=== PATIENT | female | born 2000 | race Caucasian/White ===

== ENCOUNTER 2023-02-12 00:55 | Emergency (ER) | payer BC, SELFPAY ==
[2023-02-12 01:08] VITALS: BP 111/75; PULSE 77; RESP 16; TEMP 36.7; O2SAT 97; BMI 19.7
--- NOTE | 2023-02-12 01:18 | ED.NURSE ---
Patient changed into mental health scrubs. Belongings searched by security and secured in med room. Patient remains calm and cooperative with cares. Boyfriend remains at bedside. MD in to assess patient.
--- NOTE | 2023-02-12 01:22 | ED.NURSE ---
RN in to chaperaone patient.
--- NOTE | 2023-02-12 01:23 | ED.NURSE ---
Oyster Sorter chaperoned MD assessment.
--- NOTE | 2023-02-12 01:34 | ED.PSYCH ---
HPI - Psych General Date Seen: 02/12/23 Chief Complaint: Psychiatric Problem/Disorder Stated Complaint: Mental Health Time Seen by Provider: 02/12/23 00:57 Source: patient and other Mode of arrival: ambulatory Limitations: no limitations History of Present Illness HPI Narrative: 23-year-old female from [place] presents here with increasing suicidal ideation that she has had for the past few days, she says she has a plan to take her Adderall or her SSRI to overdose. She comes in [facility] with her boyfriend, and also because her friends have asked her to come here. She saw her new psychologist today, feels that she has escalating suicidal ideation much to the same point as 2 years ago when she was seen for an acetaminophen overdose. She was not hospitalized at that time, has never before been inpatient. Denies any use of alcohol or drugs, denies being , came here [facility] hoping that she could be sent somewhere for few days to get through this. complaint: suicidal ideation and feels depressed Onset (ago): day(s) Duration: constant History of same: Yes Relieving factors: none Exacerbating factors: none Context: significant life stressor Associated psychiatric symptoms: depression and suicidal ideation Associated symptoms: denies other symptoms Treatments prior to arrival: none If self harm: has plan Related Data Home Medications Medication Instructions Recorded Confirmed dextroamphetamine-amphetamine ER 1 cap PO PRN 02/12/23 02/12/23 20 mg 24hr capsule,extend release epinephrine 0.3 mg/0.3 mL 02/12/23 injection, auto-injector Allergies Allergy/AdvReac Type Severity Reaction Status Date / Time Cephalosporins AdvReac Severe Anaphylaxis Verified 02/12/23 01:00 Penicillins AdvReac Severe Anaphylaxis Verified 02/12/23 01:00 Review of Systems Status of ROS: Reports: 10 or more systems reviewed and unremarkable except as noted in History and below PFSH PFS Social History Smoking Status: Never smoker Do you use any of these nicotine containing products: None Second hand tobacco smoke exposure: No How often do you have a drink containing alcohol: 2-4 times a month AUDIT-C Alcohol total score: 2 Non-prescribed substance use: marijuana (any form) service: No Exam Narrative: Exam Narrative: Patient is seen in room 1, with nurse Hayde present, speaking to me normally nontoxic, no apparent distress, pupils equal round reactive to light, TMs are normal oropharynx is normal her neck is supple full range of motion. No meningismus, TMs are normal bilaterally, hydration status excellent, cranial nerves 3-12 are normal, chest is clear bilaterally no wheezing crackles noted heart sounds are normal, abdomen is soft scaphoid no organomegaly no tenderness to palpation bowel sounds are normal she moves all extremities independently and well, no tremors, able to walk and talk normally, no evidence of any cutting on the arms, no rashes. Const: Vital Signs, click to edit/add: Vital Signs - 24 hr 02/12/23 01:08 02/12/23 10:50 Temperature 98.0 F 97.9 F Pulse Rate [Pulse Oximeter] 77 80 Respiratory Rate 16 14 Blood Pressure [Le ft Upper Arm] 111/75 113/60 Pulse Oximetry 97 99 Oxygen Delivery Me thod Room Air Room Air Documenting provider has reviewed patient's vital signs: yes Course Course Hospital Course: Patient accepted for transfer, still on volunteer basis. No concerns prior to transfer. Reevaluation(s) Reevaluation #1: Labs are negative, she is medically cleared, for psychiatric evaluation, and possible admission /transfer. Very low possibilities is that her depression, and suicidal ideation is related to a medical issue. Time: 05:40 Reevaluation #2: I spoke to the mental health regional clinical research associate, she recommends inpatient voluntary admission, patient is agreeable to this, mental health regional clinical research associate also spoke to the family, we will try to find her bed, for proper forms are filled out, I will sign her over to the oncoming emergency room physician. She is stable for transfer, medically cleared. Time: 07:12 Vital Signs Vital signs: Initial Vital Signs Temperature 98.0 F 02/12/23 01:08 Temperature Source Temporal Artery Scan 02/12/23 01:08 Pulse Rate 77 02/12/23 01:08 Pulse Rhythm Regular 02/12/23 01:08 Respiratory Rate 16 02/12/23 01:08 Blood Pressure 111/75 02/12/23 01:08 Blood Pressure Mean 87 02/12/23 01:08 Pulse Oximetry 97 02/12/23 01:08 Oxygen Delivery Method Room Air 02/12/23 01:08 Vital Signs Temperature 98.0 F 02/12/23 01:08 Pulse Rate 77 02/12/23 01:08 Respiratory Rate 16 02/12/23 01:08 Blood Pressure 111/75 02/12/23 01:08 Pulse Oximetry 97 02/12/23 01:08 Oxygen Delivery Method Room Air 02/12/23 01:08 Temperature 97.9 F 02/12/23 10:50 Pulse Rate 80 02/12/23 10:50 Respiratory Rate 14 02/12/23 10:50 Blood Pressure 113/60 02/12/23 10:50 Pulse Oximetry 99 02/12/23 10:50 Oxygen Delivery Method Room Air 02/12/23 10:50 MDM - Psych MDM Narrative Medical decision making narrative: Differential diagnosis includes but is not limited life-threatening diagnosis is of severe depression with suicidal plan, chemical intoxication with suicidal ideation and risk of self-harm, schizoaffective disorder with risk of self-harm, bipolar disorder with severe depressive phase and risk of self-harm, personality disorder with risk of self-harm, depression due to hyperthyroidism, metabolic derangement, or CABLE TOWER OPERATOR abnormality Medical Records Attestation: I reviewed the patient's medical records. Lab Data Attestation: I reviewed the patient's lab results. Labs: Lab Results 02/12/23 02/12/23 02/12/23 Range/Units 01:30 01:40 01:50 WBC 7.50 (4.50-11.00) K/uL RBC 4.80 (4.00-5.20) m/uL Hgb 13.2 (12.0-16.0) gm/dL Hct 39.8 (33.0-51.0) % MCV 83 (80-100) fL MCH 28 (26-34) pg MCHC 33 (32-36) gm/dL RDW Coeff of Reynaldo 13.2 (11.5-15.5) % Plt Count 312 (140-440) K/uL Neut % (Auto) 61.7 (42.0-72.0) % Lymph % (Auto) 24.3 (20-44) % [place] % (Auto) 9.3 (0.0-11.0) % Eos % (Auto) 3.3 (0.0-7.0) % Baso % (Auto) 0.5 (0.0-3.0) % Neut # (Auto) 4.62 (1.7-7.0) K/uL Lymph # (Auto) 1.82 (0.90-2.90) K/uL [place] # (Auto) 0.70 (0.00-0.90) K/UL Eos # (Auto) 0.25 (0.00-0.50) K/uL Baso # (Auto) 0.04 (0.00-0.30) K/uL Sodium 138 (135-149) mmol/L Potassium 3.9 (3.6-5.1) mmol/L Chloride 107 (96-114) mmol/L Carbon Dioxide 25 (20-32) mmol/L BUN 13 (5-24) mg/dL Creatinine 0.6 (0.5-1.5) mg/dL Estimated Creat Clear 122.14 Estimated GFR 131 ml/min Glucose 97 (60-115) mg/dL Calcium 9.2 (8.4-10.6) mg/dL Total Bilirubin 0.7 (0.1-1.5) mg/dL Direct Bilirubin 0.2 (0.0-0.5) mg/dL AST 25 (12-35) U/L ALT 19 (4-35) U/L Alkaline Phosphatase 84 (40-150) U/L Total Protein 7.4 (6.0-8.3) g/dL Albumin 4.6 (3.3-5.0) g/dL TSH 2.370 (0.270-4.20) uIU/mL HCG, Qual Negative (Negative) Salicylates < 1.0 L (1.0-10) mg/dL Urine Opiates Screen Negative (Negative) Ur Oxycodone Screen Negative (Negative) Urine Methadone Screen Negative (Negative) Ur Propoxyphene Screen Negative (Negative) Acetaminophen < 10.0 L (10.0-30.0) ug/mL Ur Barbiturates Screen Negative (Negative) U Tricyclic Antidepress Negative (Negative) Ur Phencyclidine Scrn Negative (Negative) Ur Amphetamines Screen Negative (Negative) U Methamphetamines Scrn Negative (Negative) U Benzodiazepines Scrn Negative (Negative) Urine Cocaine Screen Negative (Negative) U Marijuana (THC) Screen POSITIVE A* (Negative) Ur Drug Screen Comment See Note Ethyl Alcohol < 0.01 L (0.01-0.03) % SARS-CoV-2 (PCR) Negative SARS-CoV-2 (Negative) Influenza Type A (PCR) Negative PCR FLU A (Negative) Influenza Type B (PCR) Negative PCR FLU B (Negative) RSV (PCR) Negative PCR RSV (Negative) Discharge Plan Discharge Clinical Impression: Suicidal ideation, Anxiety, Depression Patient Disposition: Xfer Psychiatric Hosp Condition: Stable Prescriptions: No Action dextroamphetamine-amphetamine 20 mg capsule,extended release 24hr 1 cap PO PRN epinephrine 0.3 mg/0.3 mL auto-injector Patient Comments: PLEASE SEE ATTACHED FOR DETAILED DIRECTIONS Stand Alone Forms: MyHealth Info Instructions
--- OUTSIDE RECORDS SUMMARY | 2023-02-12 01:38 | XMS_ITS | Summary of Care ---
Author Name Unknown Organization [facility] Garcia is Address [address] [place] [id number]- Care Team Providers Care Handcrew Foreman Name Role Phone Clinic, Non Provider Primary Care Physician Unav ailable Encounter Recondolorena Opara Date(s): 09/06/17 - 09/06/[address] [phone]- Discharge Diagnosis: Nexplanon in place Discharge Diagnosis: Iron deficiency Discharge Diagnosis: Heavy menstrual bleeding Discharge Diagnosis: Dysmenorrhea Discharge Disposition: Home/Self Care Attending Physician: Zofia Lal MD Admitting Physician: Zofia Lal MD Vital Signs Most recent to oldest [Reference Range]: 1 Chief Complaint Annual Check Up (09/06/17 2:31 PM) Pulse Rate [55-90 bpm] 83 bpm (09/06/17 2:31 PM) Blood Pressure [90-138/45-84 mm Hg] 102/ 59mm Hg (09/06/17 2:31 PM) Systolic BP Percentile 23.87 (09/06/17 2:42 PM) Diastolic BP Percentile 29.40 (09/06/17 2:42 PM) Height 159 cm (09/06/17 2:31 PM) Weight 47.9 kg (09/06/17 2:31 PM) DOSING WEIGHT 47.900 kg (09/06/17 2:31 PM) [place] Body Weight 51.18 kg (09/06/17 2:31 PM) BSA 1.455 m2 (09/06/17 2:31 PM) Body Mass Index 18.9 kg/m2 (09/06/17 2:31 PM) BMI Percentile 31.10 (09/06/17 2:31 PM) Problem List Condition Effective Dates Status Health Status Inform ant Dysmenorrhea(Confirmed) Active S/P tonsillectomy and adenoidectomy(Confirmed) < 06/29/16 Resolved Iron deficiency(Confirmed) Active Heavy menstrual bleeding(Confirmed) Active Nexplanon in place(Confirmed) Active Allergies, Adverse Reactions, Alerts Substance Reaction Severity Status Cefzil Active penicillins Active Tree Nuts Moderate Active Medications No Known Medications Results No data available for this section Immunizations No data available for this section Procedures No data available for this section Social History No data available for this section Assessment and Plan No data available for this section Reason for Visit gynecology annual exam
--- OUTSIDE RECORDS SUMMARY | 2023-02-12 01:38 | XMS_ITS | Summary of Care ---
Author Name Unknown Organization Joseph Garcia is Address [address] [place] [address]- Care Team Providers Care Food Broker Name Role Phone Clinic, Non Provider Primary Care Physician Unav ailable Encounter Panonolorena Netcipia Date(s): 06/29/16 - 06/29/[address] [phone]- Discharge Diagnosis: Heavy menstrual bleeding Discharge Diagnosis: Dysmenorrhea Discharge Diagnosis: General counseling and advice on contraceptive management Discharge Disposition: Home/Self Care Attending Physician: Zofia Lal MD Admitting Physician: Zofia Lal MD Vital Signs Most recent to oldest [Reference Range]: 1 Chief Complaint new patient, heavy m enstrual periods, long lasting periods that last 10-11 days, blood clots (06/29/16 3:12 PM) Pulse Rate [55-90 bpm] 102 bpm *HI* (06/29/16 3:12 PM) Blood Pressure [90-138/45-84 mm Hg] 120/ 66mm Hg (06/29/16 3:12 PM) Concerns about Pain No (06/29/16 3:12 PM) Height 156.9 cm (06/29/16 3:12 PM) Weight 44.2 kg (06/29/16 3:12 PM) DOSING WEIGHT 44.200 kg (06/29/16 3:12 PM) BSA 1.388 m2 (06/29/16 3:12 PM) Body Mass Index 18 kg/m2 (06/29/16 3:12 PM) BMI Percentile 26.96 (06/29/16 3:12 PM) Problem List Condition Effective Dates Status Health Status Inform ant Dysmenorrhea(Confirmed) Active S/P tonsillectomy and adenoidectomy(Confirmed) Active Heavy menstrual bleeding(Confirmed) Active Allergies, Adverse Reactions, Alerts Substance Reaction Severity Status Cefzil Active penicillins Active Medications No Known Medications Results No data available for this section Immunizations No data available for this section Procedures No data available for this section Social History No data available for this section Assessment and Plan No data available for this section Reason for Visit heavy periodsself referred
--- OUTSIDE RECORDS SUMMARY | 2023-02-12 01:38 | XMS_ITS | Continuity of Care Document ---
Author Name Unknown Organization Joseph murray Address Unknown Care Team Providers Care Mill Platform Supervisor Name Role Phone Clinic, Non Provider Primary Care Physician Unav ailable [facility], [place] Unavailabl e Encounter [facility] [employer] Date(s): 06/18/22 - 06/18/22 [facility] [place] [id number] [phone] Discharge Disposition: Home/Self Care Attending Physician: Bekah Gonzales Admitting Physician: Bekah Gonzales Referring Physician: Bekah Gonzales Allergies, Adverse Reactions, Alerts Substance Reaction Severity Status Cefzil Active penicillins Active Tree Nuts Moderate Active Problem List Condition Effective Dates Status Health Status Inform ant Acne vulgaris(Confirmed) Active Anxiety(Confirmed) Active ADHD (attention deficit hyperactivity disorder)(Confirmed) Active Dysmenorrhea(Confirmed) Resolved Hx of iron deficiency anemia(Confirmed) Active S/P tonsillectomy and adenoidectomy(Confirmed) < 06/29/16 Resolved COVID-19 vaccine series completed(Confirmed) Active Iron deficiency(Confirmed) < 09/06/17 Resolved Heavy menstrual bleeding(Confirmed) < 09/06/17 Resolved Migraine headache(Confirmed) Active PTSD (post-traumatic stress disorder)(Confirmed) Active Nexplanon in place(Confirmed) Resolved Care Team Personnel Name: Clinic , Non Provider Name: [facility] Address: Address: [facility] in [address] [address]
--- OUTSIDE RECORDS SUMMARY | 2023-02-12 01:38 | XMS_ITS | Summary of Care ---
Author Name Unknown Organization Joseph Garcia is Address [address] [place] [phone]- Care Team Providers Care Hose Tender Name Role Phone Clinic, Non Provider Primary Care Physician Unav Delaney Lau Primary Care Physician Sandrita Brown Primary Care Physician [phone] Judtih Correa Primary Care Physician Aide Catalan Primary Care Physician [phone] Encounter Joseph [employer] Date(s): 09/05/18 - 09/05/[address] [phone]- Encounter Diagnosis Dysmenorrhea(Discharge Diagnosis) - 09/05/[address](Discharge Diagnosis) - 09/05/18 H/O iron deficiency anemia(Discharge Diagnosis) - 09/05/18 Discharge Disposition: Home/Self Care Attending Physician: Zofia Lal MD Admitting Physician: Zofia Lal MD Vital Signs Most recent to oldest [Reference Range]: 1 Chief Complaint follow up annual vis it (09/05/18 11:40 AM) Vital Signs Comments LMP 07/2018 (09/05/18 11:32 AM) Pulse Rate [55-90 bpm] 67 bpm (09/05/18 11:32 AM) Blood Pressure [90-138/45-84 mm Hg] 112/ 58mm Hg (09/05/18 11:32 AM) Systolic BP Percentile 54.07 (09/05/18 11:36 AM) Diastolic BP Percentile 23.75 (09/05/18 11:36 AM) Concerns about Pain No (09/05/18 11:32 AM) Height 161.2 cm (09/05/18 11:32 AM) Height Method Standing (09/05/18 11:32 AM) Weight 51.1 kg (09/05/18 11:32 AM) DOSING WEIGHT 51.100 kg (09/05/18 11:32 AM) [place] Body Weight 53.86 kg 1 (09/05/18 11:32 AM) [place] Body Weight Percentage 95.00 % 2 (09/05/18 11:32 AM) BSA 1.513 m2 (09/05/18 11:32 AM) Body Mass Index 19.7 kg/m2 (09/05/18 11:32 AM) BMI Percentile 35.86 % 3 (09/05/18 11:32 AM) 1Result Comment: Automatically calculated as a result of charting a height of 161.2 cm. 2Result Comment: Automatically calculated as a result of charting a height of 161.2 cm. 3Result Comment: Automatically calculated as a result of charting a BMI of 19.7 Problem List Condition Effective Dates Status Health Status Inform ant Anxiety(Confirmed) Active ADHD (attention deficit hyperactivity disorder)(Confirmed) Active Dysmenorrhea(Confirmed) Active S/P tonsillectomy and adenoidectomy(Confirmed) < 06/29/16 Resolved Iron deficiency(Confirmed) < 09/06/17 Resolved Heavy menstrual bleeding(Confirmed) < 09/06/17 Resolved PTSD (post-traumatic stress disorder)(Confirmed) Active Nexplanon in place(Confirmed) Active Allergies, Adverse Reactions, Alerts Substance Reaction Severity Status Cefzil Active penicillins Active Tree Nuts Moderate Active Medications Tab-A-Kathleen with Iron (multivitamin with iron) 0 Refill(s) Start Date: 09/05/18 Status: Ordered Xyzal 5 mg oral tablet 0 Refill(s), Acute Start Date: 09/05/18 Status: Ordered Reason for Visit annual visit/nexplanon follow up
--- OUTSIDE RECORDS SUMMARY | 2023-02-12 01:39 | XMS_ITS | Summary of Care ---
Author Name Unknown Organization Joseph Garcia Address [address] [place] [phone] Care Team Providers Care Manager Lean Name Role Phone Clinic, Non Provider Primary Care Physician Unav ailable Encounter Joseph GIL[facility] Date(s): 07/07/16 - 07/07/[address] [phone]- Discharge Disposition: Home/Self Care Attending Physician: Zofia Lal MD Admitting Physician: Zofia Lal MD Referring Physician: Not Known , Provider Vital Signs No data available for this section Problem List Condition Effective Dates Status Health Status Inform ant Dysmenorrhea(Confirmed) Active S/P tonsillectomy and adenoidectomy(Confirmed) Active Heavy menstrual bleeding(Confirmed) Active Allergies, Adverse Reactions, Alerts Substance Reaction Severity Status Cefzil Active penicillins Active Medications No data available for this section Results No data available for this section Immunizations No data available for this section Procedures No data available for this section Social History No data available for this section Assessment and Plan No data available for this section Reason for Visit LABS
--- OUTSIDE RECORDS SUMMARY | 2023-02-12 01:39 | XMS_ITS | Summary of Care ---
Author Name Unknown Organization [facility] Care Team Providers Care Ultrasonographer Name Role Phone Clinic, Non Provider Primary Care Physician Unav ailable Encounter [employer] Date(s): 07/31/16 - 07/31/16 [facility] Discharge Diagnosis: Heavy menstrual bleeding Discharge Diagnosis: Dysmenorrhea Discharge Disposition: Home/Self Care Attending Physician: Shayy Torres DO Admitting Physician: Shayy Torres DO Vital Signs Most recent to oldest [Reference Range]: 1 Chief Complaint follow up, discuss i mplant (07/31/16 11:16 AM) Pulse Rate [55-90 bpm] 76 bpm (07/31/16 11:16 AM) Blood Pressure [90-138/45-84 mm Hg] 92/5 4mm Hg (07/31/16 11:16 AM) Concerns about Pain No (07/31/16 11:16 AM) Height 157.3 cm (07/31/16 11:16 AM) Weight 45.9 kg (07/31/16 11:16 AM) DOSING WEIGHT 45.900 kg (07/31/16 11:16 AM) [place] Body Weight 48.61 kg (07/31/16 11:16 AM) BSA 1.416 m2 (07/31/16 11:16 AM) Body Mass Index 18.6 kg/m2 (07/31/16 11:16 AM) BMI Percentile 35.07 (07/31/16 11:16 AM) Problem List Condition Effective Dates Status Health Status Inform ant Dysmenorrhea(Confirmed) Active S/P tonsillectomy and adenoidectomy(Confirmed) Active Heavy menstrual bleeding(Confirmed) Active Allergies, Adverse Reactions, Alerts Substance Reaction Severity Status Cefzil Active penicillins Active Medications etonogestrel 68 mg subcutaneous implant 68 mg = 1 EACH Sub-Q Once, # 1 EACH, 0 Refill(s), Soft Stop Start Date: 07/31/16 Status: Ordered Results No data available for this section Immunizations No data available for this section Procedures No data available for this section Social History No data available for this section Assessment and Plan No data available for this section Reason for Visit Nexplanon
--- OUTSIDE RECORDS SUMMARY | 2023-02-12 01:39 | XMS_ITS | Continuity of Care Document ---
Author Name Unknown Organization Joseph Garcia is Address [address] [place] [phone]- Care Team Providers Care Car Record Clerk Name Role Phone Clinic, Non Provider Primary Care Physician Unav ailable [facility] Encounter Joseph [facility] Date(s): 03/24/22 - 03/24/[address] [address]- Encounter Diagnosis Encounter for IUD insertion(Discharge Diagnosis) - 03/24/22 Hx of iron deficiency anemia(Discharge Diagnosis) - 03/24/22 Migraine headache(Discharge Diagnosis) - 03/24/22 Acne vulgaris(Discharge Diagnosis) - 03/24/22 Uses oral contraceptives as primary control method(Discharge Diagnosis) - 03/24/22 Discharge Disposition: Home/Self Care Attending Physician: Zofia Lal MD Admitting Physician: Zofia Lal MD Allergies, Adverse Reactions, Alerts Substance Reaction Severity Status Cefzil Active penicillins Active Tree Nuts Moderate Active Medications Kyleena 19.5 mg IUD 19.5 mg = 1 EACH Vaginally Once, # 1 EACH, 0 Refill(s), other Start Date: 03/24/22 Status: Ordered Problem List Condition Effective Dates Status Health [...] stress disorder)(Confirmed) Active Nexplanon in place(Confirmed) Resolved Procedures Procedure Date Related Diagnosis Body Site Status Insertion of intrauterine device (IUD) 03/24/22 Completed Results Laboratory List Name Date CBC with Diff and Platelets 03/24/22 Ferritin 03/24/22 Iron Profile (FE/TIBC) (Iron Saturation, Total and TIBC) 03/24/22 CONFIDENTIAL - Pre-procedura l Test, Urine (Pre-Procedural Test, Urine) 03/24/22 Most recent to oldest [Reference Range]: 1 Unsaturated IBC [70-310 ug/dL] 323 ug/dL *HI* (03/24/22 12:34 PM) Basophils [0-1 %] 1 % (03/24/22 12:34 PM) Eosinophils [0-3 %] 3 % (03/24/22 12:34 PM) Ferritin [5-204 ng/mL] 5 ng/mL (03/24/22 12:34 PM) HEMATOCRIT [33-51 %] 39.5 % (03/24/22 12:34 PM) HEMOGLOBIN [12.0-16.0 g/dL] 12.9 g/dL (03/24/22 12:34 PM) IBC [250-400 ug/dL] 487 ug/dL *HI* (03/24/22 12:34 PM) Iron Saturation [11-46 %] 34 % (03/24/22 12:34 PM) Iron Total [50-170 ug/dL] 164 ug/dL (03/24/22 12:34 PM) Lymphocytes [24-44 %] 24 % (03/24/22 12:34 PM) MCH [26-34 pg] 26.9 pg (03/24/22 12:34 PM) MCHC [32-36 %] 32.7 % (03/24/22 12:34 PM) MCV [80-100 fL] 82 fL (03/24/22 12:34 PM) Monocytes [4-10 %] 8 % (03/24/22 12:34 PM) Neutrophils [35-66 %] 64 % (03/24/22 12:34 PM) Nucleated RBC's/100 WBC [0 /100 WBC] 0 / 100 WBC (03/24/22 12:34 PM) RBC [4.00-5.20 M/uL] 4.80 M/uL (03/24/22 12:34 PM) RDW [11.5-13.1 %] 12.7 % (03/24/22 12:34 PM) WBC [4.5-11.0 k/uL] 6.3 k/uL (03/24/22 12:34 PM) PLATELET COUNT [150-450 k/uL] 325 k/uL (03/24/22 12:34 PM) Test- Urine Negative (03/24/22 11:30 AM) Mean Platelet Volume [7.4-10.4 fL] 9.4 f L (03/24/22 12:34 PM) Diff Type Auto (03/24/22 12:34 PM) Absolute Lymphocyte Count [1.10-5.00 k/u L] 1.490 k/uL (03/24/22 12:34 PM) Immature Granulocyte [0.0-0.6 %] 0 % (03/24/22 12:34 PM) ANC, Differential [1.50-8.50 k/uL] 4.050 k/uL (03/24/22 12:34 PM) Vital Signs Most recent to oldest [Reference Range]: 1 Chief Complaint Interested in switch ing from pill to IUD today. (03/24/22 10:59 AM) Pulse Rate [61-90 bpm] 91 bpm *HI* (03/24/22 10:59 AM) Blood Pressure [90-140/60-90 mm Hg] 125/ 66mm Hg (03/24/22 10:59 AM) Height 163.2 cm (03/24/22 10:59 AM) Weight 52.5 kg (03/24/22 10:59 AM) DOSING WEIGHT 52.500 kg (03/24/22 10:59 AM) Adjusted body weight 54.17 kg 1 (03/24/22 10:59 AM) [place] Body Weight 55.30 kg 2 (03/24/22 10:59 AM) [place] Body Weight Percentage 95.00 % 3 (03/24/22 10:59 AM) BSA 1.543 m2 (03/24/22 10:59 AM) Body Mass Index 19.7 kg/m2 (03/24/22 10:59 AM) 1Result Comment: Automatically calculated as a result of charting a height of 163.2 cm. 2Result Comment: Automatically calculated as a result of charting a height of 163.2 cm. 3Result Comment: Automatically calculated as a result of charting a height of 163.2 cm. Care Team Personnel Name: Clinic , Non Provider Name: [facility] Address: [facility] [id number] [place] [address]
--- OUTSIDE RECORDS SUMMARY | 2023-02-12 01:39 | XMS_ITS | Continuity of Care Document ---
Author Name Unknown Organization Joseph Garcia is Address [address] [place] [address]- Care Team Providers Care Plant Electrical Engineer Name Role Phone Clinic, Non Provider Primary Care Physician Unav ailable [facility] Encounter Joseph Sayduck Date(s): 12/09/21 - 12/09/[address] [address] Encounter Diagnosis Nexplanon removal(Discharge Diagnosis) - 12/09/21 Oral contraceptive prescribed(Discharge Diagnosis) - 12/09/21 Screening for HIV (human immunodeficiency virus)(Discharge Diagnosis) - 12/09/21 Screen for STD (sexually transmitted disease)(Discharge Diagnosis) - 12/09/21 Discharge Disposition: Home/Self Care Attending Physician: Zofia Lal MD Admitting Physician: Zofia Lal MD Allergies, Adverse Reactions, Alerts Substance Reaction Severity Status Cefzil Active penicillins Active Tree Nuts Moderate Active Medications Sprintec 0.25 mg-35 mcg oral tablet 1 TABLET PO QDay, start first tablet today, # 84 TABLET, 3 Refill(s), [facility] Start Date: 12/09/21 Status: Ordered Problem List Condition Effective Dates Status Health Status Inform ant Anxiety(Confirmed) Active ADHD (attention deficit hyperactivity disorder)(Confirmed) Active Dysmenorrhea(Confirmed) Resolved S/P tonsillectomy and adenoidectomy(Confirmed) < 06/29/16 Resolved COVID-19 vaccine series completed(Confirmed) Active Iron deficiency(Confirmed) < 09/06/17 Resolved Heavy menstrual bleeding(Confirmed) < 09/06/17 Resolved PTSD (post-traumatic stress disorder)(Confirmed) Active Nexplanon in place(Confirmed) Resolved Procedures Procedure Date Related Diagnosis Body Site Status Removal, non-biodegradable d rug delivery implant 12/09/21 Completed Results Laboratory List Name Date CONFIDENTIAL - HIV-1,2 Antig en/ Antibody Eval Reflex >2 years (HIV-1,2 Antigen/ Antibody Eval Reflex >2 years) 12/09/21 CONFIDENTIAL - Chlamydia and Gonorrhea P CR * (Chlamydia and Gonorrhea PCR *) 12/09/21 Most recent to oldest [Reference Range]: 1 HIV 1/2 Ag/Ab Screen [NONREACTIVE-NONREA CTIVE] NONREACTIVE (12/09/21 3:35 PM) Chlamydia/GC Source VAGINA (12/09/21 2:37 PM) Chlamydia PCR Negative (12/09/21 2:37 PM) Gonorrhea PCR Negative (12/09/21 2:37 PM) Vital Signs Most recent to oldest [Reference Range]: 1 Chief Complaint Interested in having nexplanon removed (12/09/21 3:09 PM) Pulse Rate [61-90 bpm] 93 bpm *HI* (12/09/21 2:12 PM) Blood Pressure [90-140/60-90 mm Hg] 110/ 67mm Hg (12/09/21 2:12 PM) Height 163.4 cm (12/09/21 2:12 PM) Weight 51.7 kg (12/09/21 2:12 PM) DOSING WEIGHT 51.700 kg (12/09/21 2:12 PM) Adjusted body weight 53.96 kg (12/09/21 2:12 PM) [place] Body Weight 57.94 kg 1 (12/09/21 2:12 PM) [place] Body Weight Percentage 89.00 % 2 (12/09/21 2:12 PM) BSA 1.532 m2 (12/09/21 2:12 PM) Body Mass Index 19.4 kg/m2 (12/09/21 2:12 PM) BMI Percentile 19.98 % 3 (12/09/21 2:12 PM) 1Result Comment: Automatically calculated as a result of charting a height of 163.4 cm. 2Result Comment: Automatically calculated as a result of charting a height of 163.4 cm. 3Result Comment: Automatically calculated as a result of charting a BMI of 19.4 Care Team Personnel Name: Clinic , Non Provider Name: [facility] Address: [facility] [address] [place], [place] [address] [place] [address]- [place]
--- OUTSIDE RECORDS SUMMARY | 2023-02-12 01:39 | XMS_ITS | Continuity of Care Document ---
Author Name Unknown Organization Joseph Garcia is Address [address] [place] [phone]- Care Team Providers Care Wire Mill Operator Name Role Phone Clinic, Non Provider Primary Care Physician Unav ailable [facility] Encounter [employer]ore[facility] [employer] Date(s): 09/17/22 - 09/17/[address] [address]- Encounter Diagnosis Postcoital bleeding(Discharge Diagnosis) - 09/17/22 Vulvar irritation(Discharge Diagnosis) - 09/17/22 Discharge Disposition: Home/Self Care Attending Physician: Bekah Gonzales Admitting Physician: Bekah Gonzales Allergies, Adverse Reactions, Alerts Substance Reaction Severity Status Cefzil Active penicillins Active Tree Nuts Moderate Active Medications amphetamine-dextroamphetamine 20 mg oral capsule, extended release 0 Refill(s), Maintenance Start Date: 09/17/22 Status: Ordered Denta 5000 Plus topical cream 0 Refill(s) Start Date: 09/17/22 Status: Ordered Diflucan 150 mg oral tablet 150 mg = 1 TABLET PO Once, # 1 TABLET, 0 Refill(s), Soft Stop, Pharmacy: [id number] Start Date: 09/17/22 Status: Ordered Problem List Condition Effective Dates [...] stress disorder)(Confirmed) Active Nexplanon in place(Confirmed) Resolved Results Laboratory List Name Date CONFIDENTIAL - Pre-procedura l Test, Urine (Pre-Procedural Test, Urine) 09/17/22 CONFIDENTIAL - Chlamydia and Gonorrhea P CR * (Chlamydia and Gonorrhea PCR *) 09/17/22 CONFIDENTIAL - Trichomonas Vaginalis PCR (Trichomonas Vaginalis PCR) 09/17/22 Most recent to oldest [Reference Range]: 1 Trichomonas vaginalis Source VAGINA (09/17/22 2:18 PM) Trichomonas vaginalis PCR Negative (09/17/22 2:18 PM) Test- Urine Negative (09/17/22 3:09 PM) Chlamydia/GC Source VAGINA (09/17/22 2:18 PM) Chlamydia PCR Negative (09/17/22 2:18 PM) Gonorrhea PCR Negative (09/17/22 2:18 PM) Vital Signs Most recent to oldest [Reference Range]: 1 Chief Complaint follow up IUD check pt has some concerns about bleeding after sex. (09/17/22 1:59 PM) Pulse Rate [61-90 bpm] 79 bpm (09/17/22 1:59 PM) Blood Pressure [90-140/60-90 mm Hg] 113/ 74mm Hg (09/17/22 1:59 PM) Concerns about Pain No (09/17/22 1:59 PM) Height 163.2 cm (09/17/22 1:59 PM) Height Method Standing (09/17/22 1:59 PM) Weight 53.2 kg (09/17/22 1:59 PM) DOSING WEIGHT 53.200 kg (09/17/22 1:59 PM) Adjusted body weight 54.45 kg 1 (09/17/22 1:59 PM) [place] Body Weight 55.30 kg 2 (09/17/22 1:59 PM) [place] Body Weight Percentage 96.00 % 3 (09/17/22 1:59 PM) BSA 1.553 m2 (09/17/22 1:59 PM) Body Mass Index 20 kg/m2 (09/17/22 1:59 PM) 1Result Comment: Automatically calculated as a result of charting a height of 163.2 cm. 2Result Comment: Automatically calculated as a result of charting a height of 163.2 cm. 3Result Comment: Automatically calculated as a result of charting a height of 163.2 cm. Care Team Personnel Name: Clinic , Non Provider Name: [facility] Address: Address: [facility] [address] [place] [address]- [place]
--- OUTSIDE RECORDS SUMMARY | 2023-02-12 01:39 | XMS_ITS | Summary of Care ---
Author Name Unknown Organization Joseph Garcia is Address [address] [place] [address]- Care Team Providers Care Applications Manager Name Role Phone Clinic, Non Provider Primary Care Physician Unav ailable Encounter [facility] [employer] [employer] Date(s): 06/11/20 - 06/11/[address] [address]- Encounter Diagnosis Encounter for removal and reinsertion of Nexplanon(Discharge Diagnosis) - 06/11/20 Routine screening for STI (sexually transmitted infection)(Discharge Diagnosis) - 06/11/20 Discharge Disposition: Home/Self Care Attending Physician: Zofia Lal MD Admitting Physician: Zofia Lal MD Vital Signs Most recent to oldest [Reference Range]: 1 Chief Complaint f/u pt being seen fo r nexplanon exchange (06/11/20 1:24 PM) Concerns about Pain No (06/11/20 1:15 PM) Height 162.1 cm (06/11/20 1:15 PM) Height Method Standing (06/11/20 1:15 PM) Weight 48.1 kg (06/11/20 1:15 PM) DOSING WEIGHT 48.100 kg (06/11/20 1:15 PM) Adjusted body weight 51.81 kg (06/11/20 1:15 PM) [place] Body Weight 56.17 kg 1 (06/11/20 1:15 PM) [place] Body Weight Percentage 86.00 % 2 (06/11/20 1:15 PM) BSA 1.472 m2 (06/11/20 1:15 PM) Body Mass Index 18.3 kg/m2 (06/11/20 1:15 PM) 1Result Comment: Automatically calculated as a result of charting a height of 162.1 cm. 2Result Comment: Automatically calculated as a result of charting a height of 162.1 cm. Problem List Condition Effective Dates Status Health [...] penicillins Active Tree Nuts Moderate Active Medications etonogestrel 68 mg subcutaneous implant 68 mg = 1 EACH Sub-Q Once, # 1 EACH, 0 Refill(s), other Start Date: 06/11/20 Status: Ordered sertraline 50 mg oral tablet 0 Refill(s), Maintenance Start Date: 06/11/20 Status: Ordered Results Most recent to oldest [Reference Range]: 1 Chlamydia/GC Source VAGINA (06/11/20 1:17 PM) Chlamydia PCR Negative (06/11/20 1:17 PM) Gonorrhea PCR Negative (06/11/20 1:17 PM) Procedures Procedure Date Related Diagnosis Body Site Status Insertion, non-biodegradable drug delivery implant 06/11/20 Completed Removal, non-biodegradable d rug delivery implant 06/11/20 Completed Reason for Visit follow up control
--- NOTE | 2023-02-12 01:42 | ED.NURSE ---
Lab in to draw patient. Patient information sent to OCT. Video monitoring in place.
[2023-02-12 01:51] LABS: Basophils Absolute Auto 0.04 K/uL (0.00-0.30); Basophils Percent Auto 0.5 % (0.0-3.0); Eosinophils Absolute Auto 0.25 K/uL (0.00-0.50); Eosinophils Percent Auto 3.3 % (0.0-7.0); Hematocrit 39.8 % (33.0-51.0); Hemoglobin* 13.2 gm/dL (12.0-16.0); Immature Granulocytes Abs Auto 0.07 K/uL (0.00-0.30); Immature Granulocytes Pct Auto 0.9 %; Lymphocytes Absolute Auto 1.82 K/uL (0.90-2.90); Lymphocytes Percent Auto 24.3 % (20-44); Mean Corpuscular HGB Conc 33 gm/dL (32-36); Mean Corpuscular Hemoglobin 28 pg (26-34); Mean Corpuscular Volume 83 fL (80-100); Monocytes Percent Auto 9.3 % (0.0-11.0); Neutrophils Absolute Auto 4.62 K/uL (1.7-7.0); Neutrophils Percent Auto 61.7 % (42.0-72.0); Platelet Count* 312 K/uL (140-440); RDW Coefficient of Variation % 13.2 % (11.5-15.5)
[2023-02-12 01:52] LABS: Slide Review Reflex No
[2023-02-12 02:04] LABS: Albumin* 4.6 g/dL (3.3-5.0); Chloride* 107 mmol/L (96-114)
[2023-02-12 02:05] LABS: Potassium* 3.9 mmol/L (3.6-5.1); Sodium* 138 mmol/L (135-149)
[2023-02-12 02:07] LABS: Creatinine* 0.6 mg/dL (0.5-1.5); Est. Creatinine Clearance* 122.14; Estimated Glomerular Filt Rate 131 ml/min
[2023-02-12 02:08] LABS: Alanine Aminotransferase* 19 U/L (4-35); Alkaline Phosphatase* 84 U/L (40-150); Aspartate Amino Transferase* 25 U/L (12-35); Bilirubin Direct* 0.2 mg/dL (0.0-0.5); Bilirubin Total* 0.7 mg/dL (0.1-1.5); Blood Urea Nitrogen* 13 mg/dL (5-24); Calcium* 9.2 mg/dL (8.4-10.6); Carbon Dioxide* 25 mmol/L (20-32); Glucose* 97 mg/dL (60-115); Total Protein* 7.4 g/dL (6.0-8.3)
[2023-02-12 02:09] LABS: Amphetamine Screen Urine Negative (Negative); Barbiturate Screen Urine Negative (Negative); Benzodiazepines Screen Urine Negative (Negative); Cocaine Screen Urine Negative (Negative); Methadone Screen Urine Negative (Negative); Methamphetamines Screen Urine Negative (Negative); Opiate Screen Urine Negative (Negative); Oxycodone Screen Urine Negative (Negative); Phencyclidine Screen Urine Negative (Negative); Tricyclic Antidepressant Urine Negative (Negative)
[2023-02-12 02:18] LABS: Acetaminophen* < 10.0 ug/mL (10.0-30.0); Ethanol* < 0.01 % (0.01-0.03); Salicylate* < 1.0 mg/dL (1.0-10)
[2023-02-12 02:20] LABS: Cannabinoid Screen Urine POSITIVE (Negative)
[2023-02-12 02:21] LABS: HCG Qualitative* Negative (Negative)
[2023-02-12 02:28] LABS: PCR FLU A Negative PCR FLU A (Negative); PCR FLU B Negative PCR FLU B (Negative); PCR RSV Negative PCR RSV (Negative); SARS PCR* Negative SARS-CoV-2 (Negative)
--- NOTE | 2023-02-12 05:33 | ED.NURSE ---
DEC assessing patient at this time.
--- NOTE | 2023-02-12 06:08 | ED.NURSE ---
DEC assessment completed. Patient provided with kanu landon per her request. She remains calm, cooperative and pleasant with interactions.
--- NOTE | 2023-02-12 06:41 | ED.NURSE ---
Patient's Dad called ED. Transferred call to wireless phone so patient can speak with father.
--- NOTE | 2023-02-12 06:51 | ED.NURSE ---
Patient updated with plan of care. She is agreeable. Provided with menu.
[2023-02-12 10:50] VITALS: BP 113/60; PULSE 80; RESP 14; TEMP 36.6; O2SAT 99
--- NOTE | 2023-02-12 13:14 | ED.NURSE ---
Jody from [facility] calling for an update on pt. Stated that she had left the facility. Will have CATHY Sutherland return call.
== END 2023-02-12 11:15 ==
PROVIDERS: Family Medicine; Emergency Provider Family Medicine
DX: R45.851 Suicidal ideations (principal); F41.9 Anxiety disorder, unspecified; F32.A Depression, unspecified
CPT/HCPCS: 36415; 80048; 80076; 80143; 80179; 80306; 82077; 84443; 84703; 85025; 87631; 99285

== ENCOUNTER 2023-02-12 10:54 | Outpatient (CLI) | payer BC, SELFPAY | END 2023-02-12 10:55 | disposition home or self-care (01) | LOC: AMB 02-14 18:46 | PROVIDERS: Visit Provider Family Medicine | DX: R45.851 Suicidal ideations (principal) | CPT/HCPCS: A0425; A0428 ==

== ENCOUNTER 2024-02-17 00:22 | Emergency (ER) | payer BC, SELFPAY ==
[2024-02-17 00:32] VITALS: BP 103/70; PULSE 93; RESP 20; TEMP 36.7; O2SAT 99; BMI 19.7
[2024-02-17 00:35] LABS: Appearance Urine Clear (Clear); Bilirubin Urine Negative (Negative); Blood Urine 3+ (Negative); Color Urine Yellow (Yellow); Glucose Urine Negative (Negative); Ketones Urine Trace (Negative); Leukocyte Esterase Urine Trace (Negative); Nitrite Urine Negative (Negative); Protein Urine 2+ (Negative); Urobilinogen Urine 0.2 (0.2-1.0)
[2024-02-17 00:43] LABS: Amphetamine Screen Urine Negative (Negative); Barbiturate Screen Urine Negative (Negative); Benzodiazepines Screen Urine Negative (Negative); Cannabinoid Screen Urine Negative (Negative); Cocaine Screen Urine Negative (Negative); Methadone Screen Urine Negative (Negative); Methamphetamines Screen Urine Negative (Negative); Opiate Screen Urine Negative (Negative); Oxycodone Screen Urine Negative (Negative); Phencyclidine Screen Urine Negative (Negative); Tricyclic Antidepressant Urine Negative (Negative)
[2024-02-17 00:48] LABS: Bacteria Urine Few; Squamous Epithelial Cell Urine Few (None-Few)
[2024-02-17 00:49] LABS: Ur HCG Qualitative* Negative (Negative)
--- OUTSIDE RECORDS SUMMARY | 2024-02-17 00:59 | XMS_ITS ---
Author Name Unknown Organization [facility] Address [address] [place] [address] Care Team Providers Care Gear Machine Operator Name Role Phone Unavailable Unavailable Unavailable Surgery Details Not on file Complications Check Surgery Details section. Procedure Estimated Blood Loss Check Surgery Details section. Procedure Findings Check Surgery Details section. Procedure Specimens Taken Check Surgery Details section.
--- OUTSIDE RECORDS SUMMARY | 2024-02-17 00:59 | XMS_ITS | Clinical Summary ---
Author Name Unknown Organization [facility] Address [place], [place] [address] Care Team Providers Care Home Aid Name Role Phone Pcp, No Primary Care Provider Unavailabl e Allergies Active Allergy Reactions Criticality Noted Date Comments Cefprozil Anaphylaxis High 08/01/2020 Cephalosporins Anaphylaxis High 05/30/2014 Latex Rash 02/27/2015 Penicillins Anaphylaxis High 08/01/2020 Tree Nuts Anaphylaxis High 08/01/2020 Medications Medication Sig Dispensed Refills Start Date End Date Status cetirizine (ZYRTEC) 10 mg tablet Take 10 mg by mouth once daily. Active levonorgestrel (KYLEENA) 17.5 mcg/24 hrs (5 yrs) 19.5 mg intrauterine device (IUD) Inject 1 Device intrauterine every 5 years. Active FLUoxetine (PROZAC) 20 mg capsuleIndications: Depression, unspecified depression type Take 1 Capsule (20 mg) by mouth once daily. 30 Capsule 06/21/2023 Active lurasidone (LATUDA) 20 mg tabletIndications:C luster B personality disorder (HC) Take 1 Tablet (20 mg) by mouth with dinner. 30 Tablet 06/21/2023 Active melatonin 3 mg tabletIndications:D epression, unspecified depression type Take 1 Tablet (3 mg) by mouth at bedtime. 30 Tablet 06/21/2023 Active Active Problems Problem Noted Date Diagnosed Date Marijuana use 06/19/2023 Family dynamics problem - Parents divorce 2022 Cluster B personality Traits 06/19/2023 Suicidal behavior with a ashanti n to overdose on pills or self cut 06/18/2023 Poor conflict management ski lls -- Increase SI due to room mate refusing pt to have an emotional cat 06/18/2023 Inability to cope with new d x of bipolar disorder a month ago 06/18/2023 Immunizations Name Administration Dates Next Due DTaP 02/23/2007, 3,2002,06/06,2002 HIB HbOC (HibTITER) 05/02/2003 HIB PRP-T (ActHIB,Hiberix) 2002,2002 ,2002 Hepatitis A (Peds) 03/23/2014,08/11/2013 Hepatitis B (Peds) 02/02/2003,2002 Hepatitis B, Unspecified 2002 Human Papilloma Virus Vaccine 03/11/2015, 014,01/19/2013 Inactivated Polio Vaccine 02/23/2007,01/2003,2002,04/06 Influenza A (H1N1), Inactivated 11/13/2009,09/26 Influenza Virus, Unspecified 07/10/2010, 11/13/2009,09/26/2009,08/19,08/16/2009,09/11/2008 Influenza, IIV3 (Age 6-35 mos) 07/22/2011,2006,08/20/2006 Influenza, IIV3 (Age >=3 years) 09/01/20 05,10/09/2004,09/28/2003,08/14,2002,2002 Influenza,LAIV4 Live Intrana estefani (Flumist) 08/11/2013 MMR 01/29/2006,02/02/2003 Meningococcal Vaccine (Menveo) 01/19/2014 Pneumococcal conj 7-Valent (Prevnar 7) 0 05/02/2003,2002,2002,04/06 Tdap 01/19/2014 Varicella Vaccine 02/23/2007,02/02/2003 Family History Medical History Relation Name Comments Bipolar disorder Father Relation Name Status Comments Father Social History Tobacco Use Types Packs/Day Years Used Date Smoking Tobacco: Never Smokeless Tobacco: Never Alcohol Use Standard Drinks/Week Comments Yes 0 (1 standard drink = 0.6 oz pur e alcohol) weekends PHQ-2 Answer Date Recorded PHQ-2 TOTAL SCORE 2 06/22/2023 Social Connections Answer Date Recorded Frequency of Communication with Friends and Fami ly Not on file 11/08/2021 Alcohol Use Answer Date Recorded How often do you have a drink containing alcohol ? 2 06/18/2023 How many drinks containing a lcohol do you have on a typical day when you are drinking? 1 06/18/2023 How often do you have five or more drinks on one occasion? 1 06/18/2023 Financial Resource Strain Answer Date R ecorded Difficulty of Paying Living Expenses Not on file 11/08/2021 Difficulty of Paying Living Expenses Not on file 11/08/2021 Sex and Gender Information Value Date Recorded Sex Assigned at Not on file Gender Identity Not on file Sexual Orientation Not on file Obstetrics History Last Filed Vital Signs Vital Sign Reading Time Taken Comments Blood Pressure 113/60 06/22/2023 6:00 AM CDT Pulse 67 06/22/2023 6:00 AM CDT Temperature 36.9 ??C (98.5 ??F) 06/22/2023 6:00 AM CD T Respiratory Rate 16 06/22/2023 6:00 AM CDT Oxygen Saturation 98% 06/22/2023 6:00 AM CDT Inhaled Oxygen Concentration - - Weight 54.8 kg (120 lb 12.8 oz) 06/19/2023 6:30 AM CDT Height 162.6 cm (5' 4) 06/19/2023 8:00 AM CDT Body Mass Index 20.74 06/19/2023 6:30 AM CDT Plan of Treatment Health Maintenance Due Date Last Done Comments HIV for age 15-65 2017 Chlamydia for age 16-24 2018 Hepatitis C screening for age 18-79 01/26/2020 Pap test for age 21-65 2023 BMI (ht and wt on same day) for age 18+ 01/30/2023 01/30/2022, 08/01/2020 COVID-19 vaccine series (5 - 2023-24 season) 2023 08/23/2022, 06/15/2022, 09/21/2021, Additional history exists Tetanus booster 01/20/2024 01/19/2014 Depression screening for age 12+ 06/22/2024 06/22/2023, 06/18/2023, 08/01/2020 Influenza for age 9-49 07/09/2024 3, 07/10/2010, 11/13/2009, Additional history exists Pneumococcal series for age 6-64 Aged Out 05/02/2003, 2002, 2002, Additional history exists No longer eligible based on patient's age to complete this topic Tdap Completed 01/19/2014 HPV series for age 9-26 Completed 03/11/20 15, 03/23/2014, 01/19/2013 Advance Directives * Full Code (Latest Code Status on File) Date Activated Date Inactivated Comments 06/19/2023 8:21 AM 06/22/2023 1:22 PM Question Answer Comments Code Status Discussion: Reviewed Preferences * Full Code Date Activated Date Inactivated Comments 06/18/2023 11:20 PM 06/19/2023 8:21 AM Question Answer Comments Code Status Discussion: Unable to Assess Preferences, Provider to review later Care Teams Home Aid Relationship Specialty Start Date End Date Pcp, No . PCP - General 08/01/20
--- OUTSIDE RECORDS SUMMARY | 2024-02-17 00:59 | XMS_ITS | Clinical Summary ---
Author Name Unknown Organization [facility] Address [address] [place] [address] Care Team Providers Care Position Clerk Name Role Phone Liza Roberto M.D. Primary Care Provider [phone] Source Comments Patient records contain information from all sites at [facility]. For routine questions regarding patient records, call [phone] during business hours, M-F 8:00 AM - 5:00 PM Central Time. Record requests for emergency care only can be directed to [phone] at any time.[facility] Allergies Active Allergy Reactions Criticality Noted Date Comments Cefprozil Anaphylaxis High 08/01/2020 Cephalosporins Anaphylaxis High 05/30/2014 Latex Rash 02/27/2015 Nut - Unspecified Anaphylaxis High 05/30/2014 PN: tree nuts Penicillins Anaphylaxis High 08/01/2020 Tree Nut Anaphylaxis High 08/01/2020 Medications Medication Sig Dispensed Refills Start Date End Date Status albuterol 90 mcg/actuation inhaler Inhale 2 puffs every 6 (six) hours as needed. 0 05/30/2014 Active amphetamine-dextr oamphetamine (ADDERALL XR) 20 mg 24 hr capsule Take 20 mg by mouth every morning. 0 08/13/2022 Active cetirizine (ZyrTEC) 10 mg tabletIndications :Allergy Seasonal Take 1 tablet (10 mg total) by mouth daily. 90 tablet 3 08/31/2022 Active EPINEPHrine (EpiPen 2-Anil) 0.3 mg/0.3 mL injection syringeIndication s:Anaphylactic Reaction Due To Tree Nuts And Seeds Subsequent Inject 0.3 mL (0.3 mg total) intramuscularly as needed for anaphylaxis. Inject intramuscularly into thigh and hold for 3 seconds. 2 each 3 10/07/2022 Active Active Problems Problem Noted Date Diagnosed Date Posttraumatic Stress Disorder Brief 08/31/2022 Migraine Headache 08/31/2022 Deficiency Iron Personal History 08/31/2022 Overview: Tested within the last year and normal. Previously on iron supplementation. Anxiety 08/31/2022 Attention Deficit With Hyperactivity Disorder Acne Vulgaris 08/31/2022 Depression Major Recurrent Moderate 08/31/2022 Overview: Psychiatry: Follows with [facility] through [facility] in [place]. She prescribes Adderall. Previously following with Psychology, none at present. Prior medication trials: Sertraline: Loss of appetite, trouble sleeping, no sex drive. Lack of emotions. Pristiq: Made things worse after 2 weeks and ended up in the hospital. Intrauterine Device Status 08/31/2022 Overview: Kyleena placed 03/24/2022. Working well. No side effects or concerns. Amblyopia Refractive Left 11/04/2020 Anisometropia 11/04/2020 Hyperopia Bilateral 11/04/2020 Encounters Date Type Department Care Team Description 12/14/2023 Orders Only [facility] PCP [facility] Liza Hope M.D. from Last 3 Months Immunizations Name Administration Dates Next Due 4vHPV (discontinued) 03/11/2015,03/23/2014,01/19 DTaP (Infanrix, Tripedia) 02/23/2007,01/2003,2002,2001,2002 H1N1 All Forms 11/13/2009,09/26/2009 HepA Pediatric/Adolescent 03/23/2014,08/11/2013 HepB Pediatric/Adolescent 02/02/2003,2002 HepB, Unspecified 2002 Hib (HbOC) (discontinued) 05/02/2003 Hib (PRP-T) (ACTHIB, HIBERIX) 2002, 002,2002 IPV 02/23/2007, 3,2002,2001 Influenza (IM) Preservative Free 07/22/2011,06/2007,08/20/2006 Influenza Laiv (Nasal) (Discontinued) ,11/13/2009,09/26/2009,2008,08/16/2009,09/11/2008 Influenza TIV (IM) 09/01/2005, 4,09/28/2003,2002,2002,2002 Influenza, Seasonal, Injectable 09/01/20 05,10/09/2004,09/28/2003,2002,2002,2002 Influenza, Unspecified 07/10/2010,2009,09/26/2009,2008,08/16/2009,09/11/2008 MCV4 (Menveo) 01/19/2014 MMR 01/29/2006,02/02/2003 PCV7 (discontinued) 05/02/2003, 2,2002,2001 SARS-COV-2 (COVID-19) - RUMA LEBLANC (J&J)(Discontinued) 02/07/2021 Tdap 01/19/2014 FRANCY 02/23/2007,02/02/2003 influenza LAIV (Nasal) (2 ye ars through 49 years) 08/11/2013 influenza vaccine quad (FLUZONE/FLUARIX) (6 months and older)(PF) 08/22/2022,08/11/2013 Family History Medical History Relation Name Comments Bicuspid aortic valve Brother No Known Problems Father Anxiety depression Mother Asthma Mother Fibromyalgia Mother Relation Name Status Comments Brother Alive Father Alive Mother Alive Social History Tobacco Use Types Packs/Day Years Used Date Smoking Tobacco: Never Smokeless Tobacco: Never Tobacco Cessation:Counseling Given: Not Answered PHQ-2 Answer Date Recorded PHQ-2 Score 2 09/01/2022 Depression Answer Date Recor ded PHQ-9 Total Score (max 27) 16 09/01 Nutrition Answer Date Recorded Nutrition: EVOO Fat Source Unknown 01/01 Nutrition: Servings of Fruits/Vegetables per Day Not on file 01/01/2021 Dental Answer Date Recorded Dental: Regular Dentist Unknown 01/01/20 21 Sex and Gender Information Value Date Recorded Sex Assigned at Not on file Gender Identity Not on file Sexual Orientation Not on file Last Filed Vital Signs Vital Sign Reading Time Taken Comments Blood Pressure 99/52 10/07/2022 1:39 PM WASH DRILLER HELPER Pulse 78 10/07/2022 1:39 PM WASH DRILLER HELPER Temperature 36.5 ??C (97.7 ??F) 08/31/2022 6:42 PM CD T Respiratory Rate - - Oxygen Saturation 99% 08/31/2022 6:42 PM CDT Inhaled Oxygen Concentration - - Weight 53 kg (116 lb 13.5 oz) 10/07/2022 1:58 PM WASH DRILLER HELPER Height 162 cm (5' 3.78) 08/31/2022 6:42 PM CDT Body Mass Index 20.19 08/31/2022 6:42 PM CDT Plan of Treatment Health Maintenance Due Date Last Done Comments Cervical Cancer Screening 2002 Chlamydia and Gonorrhea Screening 2002 HIV Screening 2002 Hepatitis C Screening 2002 Depression Monitoring (PHQ-9) 01/02/2023 09/01/2022 COVID-19 Vaccine ( season) 2023 08/23/2022, 06/15/2022, 09/21/2021, Additional history exists Influenza Vaccine (#1) 2023 , 08/11/2013, 08/11/2013, Additional history exists DTaP,Tdap,and Td Vaccines (7 - Td or Tdap) 01/20/2024 01/19/2014, 02/23/2007, 08/10/2003, Additional history exists Hepatitis B Vaccines Completed 02/02/2003, 2002, 2002 Pneumococcal vaccine (0-64 years) Aged Out 05/02/2003, 2002, 2002, Additional history exists No longer eligible based on patient's age to complete this topic Meningococcal Vaccine Aged Out 01/19/2014 No dede galina eligible based on patient's age to complete this topic HPV Vaccines Completed 03/11/2015, 03/08, 01/19/2013 Care Teams Position Clerk Relationship Specialty Start Date End Date Liza Roberto M.D. [id number] [phone] PCP - General Family Medicine 07/24/22
--- OUTSIDE RECORDS SUMMARY | 2024-02-17 00:59 | XMS_ITS | Clinical Summary ---
Author Name Unknown Organization [facility] Address [address], [place] [address] Care Team Providers Care Patient Service Associate Name Role Phone Isabel Holt MD Primary Care Provider [phone] Source Comments You are receiving this document as you are listed as the primary care provider,follow-up provider, or the patient has been referred to you for consultation.This is in compliance with the Medicare and[facility] E[facility] Incentive Program,which states Providers who transition their patient to another setting of careor provider of care or refers their patient to another provider of care shouldprovide summary care record for each transition of care or referral. [employer] Allergies Active Allergy Reactions Criticality Noted Date Comments Cephalosporins Anaphylaxis High 05/30/2014 Latex Rash 02/27/2015 Nuts Anaphylaxis High 05/30/2014 PN: tree nuts Penicillins Anaphylaxis High 05/30/2014 Medications Medication Sig Dispensed Refills Start Date End Date Status cetirizine (AKA ZYRTEC) 5 MG tablet Take 5 mg by mouth daily (every 24 hours). 02/27/2015 Active ALBUterol 5 mg/mL, 0.5%, (PROVENTIL) (5 MG/ML) 0.5% nebulizer solution Take 2.5 mg by nebulization every 6 hours as needed for Wheezing. 05/30/2014 Active ALBUterol sulfate HFA 108 (90 BASE) MCG/ACT inhaler Inhale 2 puffs every 6 hours as needed for Wheezing. 05/30/2014 Active fluticasone-salmete rol (ADVAIRHFA) 45-21 mcg/actuation inhaler Inhale 2 puffs 2 times daily. Rinse mouth/Gargle after use 05/30/2014 Active sulfacetamide (KLARON) 10 % lotion Apply topically two times a day. 118 mL 3 02/04/2018 Active etonogestrel (NEXPLANON) 68 MG implant Inject subcutaneously. 07/31/2016 Active Active Problems Problem Noted Date Diagnosed Date Acute right otitis media 05/30/2014 Social History Tobacco Use Types Packs/Day Years Used Date Smoking Tobacco: Never Smokeless Tobacco: Never Sex and Gender Information Value Date Recorded Sex Assigned at Not on file Gender Identity Not on file Sexual Orientation Not on file Last Filed Vital Signs Vital Sign Reading Time Taken Comments Blood Pressure 110/64 06/13/2021 12:07 PM CDT Pulse 81 06/13/2021 12:07 PM CDT Temperature 36.6 ??C (97.8 ??F) 06/13/2021 9:37 AM CD T Respiratory Rate 16 06/13/2021 9:37 AM CDT Oxygen Saturation 98% 06/13/2021 12:07 PM CDT Inhaled Oxygen Concentration - - Weight 50.8 kg (112 lb) 06/13/2021 9:37 AM CDT Height 130.4 cm (4' 3.34) 09/02/2015 3:33 PM CD T Body Mass Index - - Plan of Treatment Health Maintenance Due Date Last Done Comments Cervical Cancer Screening Due 2002 Chlamydia 2002 Hep C Screening (Preventive Services) 2002 HIV Screening (Preventive Services) 2018 Adult Preventive Visit 01/26/2020 HepB (1) 2021 COVID-19 Vaccine (2 - season) 2023 02/07/2021 Influenza (#1) 2023 08/11/2013, 07/09, 07/10/2010, Additional history exists DTaP/Tdap/Td (7 - Tdap) 01/20/2024 01/20/20 14, 02/23/2007, 08/10/2003, Additional history exists Zoster/Shingles (1 of 2) 01/26/2052 Hib Completed 05/02/2003, 07/10, 2002, Additional history exists Pneumococcal Aged Out 05/02/2003, 07/10, 2002, Additional history exists No longer eligible based on patient's age to complete this topic IPV (Polio) Completed 02/23/2007, 01/2003, 2002, Additional history exists MCV4 Aged Out 01/19/2014 No longer eligi ble based on patient's age to complete this topic HepA Completed 03/23/2014, 08/11/2013 HPV Vaccine Completed 03/11/2015, 03/08, 01/19/2013 Care Teams Patient Service Associate Relationship Specialty [place] [address] [facility] [place] [id number] PCP - General 05/30/14
--- OUTSIDE RECORDS SUMMARY | 2024-02-17 00:59 | XMS_ITS | Referral Summary ---
Author Name Unknown Organization [facility] Address [address] [place] [address] Care Team Providers Care Personal Care Assistant Name Role Phone Liza Roberto M.D. Primary Care Provider [phone] Source Comments Patient records contain information from all sites at [facility]. For routine questions regarding patient records, call [phone] during business hours, M-F 8:00 AM - 5:00 PM Central Time. Record requests for emergency care only can be directed to [phone] at any time.[facility] Encounters Date Type Department Care Team Description 12/14/2023 Orders Only [facility] PCP TH TAL[facility]AT Liza Roberto M.D. from Last 3 Months Allergies Active Allergy Reactions Criticality Noted Date [...] 08/31/2022 Overview: Psychiatry: Follows with Parris through [facility] in [place]. She prescribes Adderall. Previously following with Psychology, none at present. Prior medication trials: Sertraline: Loss of appetite, trouble sleeping, no sex drive. Lack of emotions. Pristiq: Made things worse after 2 weeks and ended up in the hospital. Intrauterine Device Status 08/31/2022 Overview: Lizzy placed 03/24/2022. Working well. No side effects or concerns. Amblyopia Refractive Left 11/04/2020 Anisometropia 11/04/2020 Hyperopia Bilateral 11/04/2020 Immunizations Name Administration Dates Next Due 4vHPV [...] quad (FLUZONE/FLUARIX) (6 months and older)(PF) 08/22/2022,08/11/2013 Social History Tobacco Use Types Packs/Day Years [...] Comments Blood Pressure 99/52 10/07/2022 1:39 PM PRODUCT SAFETY OFFICER Pulse 78 10/07/2022 1:39 PM PRODUCT SAFETY OFFICER Temperature 36.5 ??C (97.7 ??F) 08/31/2022 6:42 PM CD T Respiratory Rate - - Oxygen Saturation 99% 08/31/2022 6:42 PM CDT Inhaled Oxygen Concentration - - Weight 53 kg (116 lb 13.5 oz) 10/07/2022 1:58 PM PRODUCT SAFETY OFFICER Height 162 cm (5' 3.78) 08/31/2022 6:42 PM CDT Body Mass Index 20.19 08/31/2022 6:42 PM CDT Plan of Treatment Not on file Care Teams Personal Care Assistant Relationship Specialty Start Date End Date Liza Roberto M.D. [address] [place] [phone] PCP - General Family Medicine 07/24/22
--- OUTSIDE RECORDS SUMMARY | 2024-02-17 00:59 | XMS_ITS | Encounter Summary ---
Author Name Unknown Organization [facility] Address [address] [place] [address] Care Team Providers Care Heel Seat Fitter Name Role Phone Liza Roberto M.D. Primary Care Provider [phone] Reason for Referral * Outpatient (Routine) - Authorized Specialty Diagnoses / Procedures Referred By Chet barclay Referred To Contact Family Medicine Liza Roberto M.D. [address] [place] [phone] [facility] Referral ID Status Reason Start Date Expiration Date V isits Requested Visits Authorized [id number] Authorized 12/14/2023 06/14/2025 1 1 ERY RECHARGER Encounter Details Date Type Department Care Team (Late st Contact Info) Description 12/14/2023 Orders Only [facility] PCP [facility] Liza Roberto M.D. [address] [place] [phone] Social History Tobacco Use Types Packs/Day Years Used Date Smoking Tobacco: Never Smokeless Tobacco: Never PHQ-2 Answer Date Recorded PHQ-2 Score 2 [...] on file Sexual Orientation Not on file documented as of this encounter Plan of Treatment Scheduled Referrals Name Type Priority Associated Diagnoses Orde r Schedule Family Medicine office visit (clinic) Outpatient Referral Routine Expected: 12/28/2023, Expires: 06/11/2024 documented as of this encounter Visit Diagnoses Not on filedocumented in this encounter Additional Health Concerns Assessment Noted Time PHQ-9 Depression Total Score: 16 022 2:52 PM CDT documented as of this encounter Care Teams Heel Seat Fitter Relationship Specialty Start Date End Date Liza Roberto M.D. [id number] [phone] PCP - General Family Medicine 07/24/22 documented as of this encounter
[2024-02-17 01:05] LABS: Basophils Absolute Auto 0.01 K/uL (0.00-0.30); Basophils Percent Auto 0.1 % (0.0-3.0); Eosinophils Absolute Auto 0.39 K/uL (0.00-0.50); Eosinophils Percent Auto 5.7 % (0.0-7.0); Hematocrit 34.3 % (33.0-51.0); Hemoglobin* 11.7 gm/dL (12.0-16.0); Immature Granulocytes Abs Auto 0.03 K/uL (0.00-0.30); Immature Granulocytes Pct Auto 0.4 %; Lymphocytes Absolute Auto 2.45 K/uL (0.90-2.90); Lymphocytes Percent Auto 35.9 % (20-44); Mean Corpuscular HGB Conc 34 gm/dL (32-36); Mean Corpuscular Hemoglobin 29 pg (26-34); Mean Corpuscular Volume 85 fL (80-100); Monocytes Percent Auto 8.8 % (0.0-11.0); Neutrophils Absolute Auto 3.35 K/uL (1.7-7.0); Neutrophils Percent Auto 49.1 % (42.0-72.0); Platelet Count* 282 K/uL (140-440); RDW Coefficient of Variation % 11.5 % (11.5-15.5); Red Blood Count 4.05 m/uL (4.00-5.20); White Blood Count* 6.83 K/uL (4.50-11.00)
--- NOTE | 2024-02-17 01:14 | ED.PSYCH ---
HPI - Psych General Chief Complaint: Psychiatric Problem/Disorder <Nirali Burroughs MD - Last Filed: 02/24/24 00:01> Stated Complaint: mental health issues <Nirali Burroughs MD - Last Filed: 02/24/24 00:01> Time Seen by Provider: 02/17/24 00:28 <Nirali Burroughs MD - Last Filed: 02/24/24 00:01> Source: patient <Nirali Burroughs MD - Last Filed: 02/24/24 00:01> Mode of arrival: ambulatory <Nirali Burroughs MD - Last Filed: 02/24/24 00:01> Limitations: no limitations <Nirali Burroughs MD - Last Filed: 02/24/24 00:01> History of Present Illness HPI Narrative: 24-year-old female with a history of reported depression, anxiety and bipolar disorder presents the emergency department with escalating suicidal ideation. No prior history of suicide attempts. Prior hospitalizations for mental health in February and June of this past year. She states that for the past couple of weeks she has had worsening thoughts of harming herself by taking pills. These are her typical suicidal ideation thoughts. She states that she is still attending classes, going to work and working out daily. She just feels hopeless, down and very depressed once she gets home. She has a lot of positive things going for her, good relationship, graduating in a few weeks, has a good job lined up in her ideal field and will be moving to [place] which is something she is very much looking forward to. She reports increased anxiety and that she is having a ?really hard week. She was worried that she would take a large amounts of pills earlier this week and gave all of her [id number] medications for her boyfriend to keep safe for her. She had been feeling better this past morning and took all of them back home and this seemed to escalate her thoughts of harming herself by taking pills. Reports feeling hopeless, helpless. Texted her mother about her feelings. Mother advised her to go to the emergency department or have her boyfriend take her there or mother would come down herself and bring patient to the emergency room. No cutting or self harm. No significant drug use. Denies excessive alcohol. Reports that she does vape nicotine products occasionally uses marijuana but none recently. No other illicit substances. Reports that she continues to see her counselor weekly. Counselors aware of the suicidal ideation and they continue to work through this. Patient reports good compliance with her medications which are lower acid own paroxetine and Seroquel. She also has an oral contraceptive. Denies any other long-term medical problems besides mental health issues. States that she is feeling a little better now that she is in the emergency room already. ROS notable for a mental health symptoms as above, otherwise denies times 12 systems. <Nirali Burroughs MD - Last Filed: 02/24/24 00:01> Related Data Home Medications: Home Medications Medication Instructions Recorded Confirmed dextroamphetamine-amphetamine ER 1 cap PO PRN 02/12/23 02/17/24 20 mg 24hr capsule,extend release epinephrine 0.3 mg/0.3 mL 0.3 ml IM DIRECTED 02/12/23 02/17/24 injection, auto-injector drospirenone 3 mg-ethinyl 1 tab PO DAILY 02/17/24 02/17/24 estradiol 0.02 mg tablet duloxetine 20 mg capsule,delayed 20 mg PO DAILY 02/17/24 02/17/24 release lorazepam 0.5 mg tablet 0.5 mg PO DAILY PRN panic attack 02/17/24 02/17/24 lurasidone 20 mg tablet 20 mg PO DAILY 02/17/24 02/17/24 <Nirali Burroughs MD - Last Filed: 02/24/24 00:01> Allergies/Adverse Reactions: Allergies Allergy/AdvReac Type Severity Reaction Status Date / Time Cephalosporins AdvReac Severe Anaphylaxis Verified 02/17/24 00:40 Penicillins AdvReac Severe Anaphylaxis Verified 02/17/24 00:40 <Nirali Burroughs MD - Last Filed: 02/24/24 00:01> [facility] Social History: Social History Smoking Status: Current every day smoker Do you use any of these nicotine containing products: Vaping Products Second hand tobacco smoke exposure: No How often do you have a drink containing alcohol: monthly or less AUDIT-C Alcohol total score: 1 Non-prescribed substance use: marijuana (any form) service: No <Nirali Burroughs MD - Last Filed: 02/24/24 00:01> Exam Const: Vital Signs, click to edit/add: Vital Signs - 24 hr 02/17/24 00:32 02/17/24 02:30 02/17/24 05:40 Temperature 98.0 F 98.0 F 98.0 F Pulse Rate [Right Pulse Oximeter] 93 87 84 Respiratory Rate 20 20 20 Blood Pressure [Ri ght Upper Arm] 103/70 115/78 118/74 Pulse Oximetry 99 99 99 Oxygen Delivery Me thod Room Air Room Air Room Air <Nirali Burroughs MD - Last Filed: 02/24/24 00:01> Vital Signs, click to edit/add: Vital Signs - 24 hr 02/17/24 00:32 02/17/24 02:30 02/17/24 05:40 Temperature 98.0 F 98.0 F 98.0 F Pulse Rate [Right Pulse Oximeter] 93 87 84 Respiratory Rate 20 20 20 Blood Pressure [Ri ght Upper Arm] 103/70 115/78 118/74 Pulse Oximetry 99 99 99 Oxygen Delivery Me thod Room Air Room Air Room Air <Sabas Shaw MD - Last Filed: 02/17/24 08:56> Documenting provider has reviewed patient's vital signs: yes <Nirali Burroughs MD - Last Filed: 02/24/24 00:01> Common normals: no apparent distress and alert <Nirali Burroughs MD - Last Filed: 02/24/24 00:01> General appearance: cooperative, comfortable and well kempt <Nirali Burroughs MD - Last Filed: 02/24/24 00:01> HENMT: Common normals: normocephalic and oropharynx normal <Nirali Burroughs MD - Last Filed: 02/24/24 00:01> Head and scalp: normocephalic <Nirali Burroughs MD - Last Filed: 02/24/24 00:01> Face and sinus: normal facial exam <Nirali Burroughs MD - Last Filed: 02/24/24 00:01> Mouth: oral and palatal mucosa normal <MD Trudy Piper Last Filed: 02/24/24 00:01> Eye: Common normals: conjunctivae normal <MD Trudy Piper Last Filed: 02/24/24 00:01> General eye: normal appearance of both eyes <MD Trudy Piper Last Filed: 02/24/24 00:01> Conjunctiva: conjunctiva(e) normal <MD Trudy Piper Last Filed: 02/24/24 00:01> Neck & C-Spine: Common normals: full ROM, no lymphadenopathy and thyroid normal <MD Trudy Piper Last Filed: 02/24/24 00:01> Thyroid: thyroid normal <MD Trudy Piper Last Filed: 02/24/24 00:01> Resp: Common normals: normal respiratory effort, no use of accessory muscles and clear to auscultation bilaterally <MD Trudy Piper Last Filed: 02/24/24 00:01> Effort & inspection: able to speak in complete sentences <MD Trudy Piper Last Filed: 02/24/24 00:01> Auscultation: clear to auscultation bilaterally <MD Trudy Piper Last Filed: 02/24/24 00:01> Cardio: Common normals: regular rate, regular rhythm, S1 normal heart sound, S2 normal heart sound and no murmurs <MD Trudy Piper Last Filed: 02/24/24 00:01> Rate: regular rate <MD Trudy Piper Last Filed: 02/24/24 00:01> Rhythm: regular rhythm <MD Trudy Piper Last Filed: 02/24/24 00:01> Heart sounds: S1 normal and S2 normal <MD Trudy Piper Last Filed: 02/24/24 00:01> GI: Common normals: Normal to inspection, nondistended, normoactive bowel sounds present, soft to palpation, non-tender, no hepatosplenomegaly and no masses <MD Trudy Piper Last Filed: 02/24/24 00:01> Palpation: soft and no hepatosplenomegaly <MD Trudy Piper Last Filed: 02/24/24 00:01> Extremity: Common normals: normal to inspection and normal capillary refill <MD Trudy Piper Last Filed: 02/24/24 00:01> Neuro: Sensorium/orientation: alert <MD Trudy Piper Last Filed: 02/24/24 00:01> Speech: speech normal <MD Trudy Piper Last Filed: 02/24/24 00:01> Gait (neuro): normal gait <MD Trudy Piper Last Filed: 02/24/24 00:01> Motor exam: no movement abnormalities noted <MD Trudy Piper Last Filed: 02/24/24 00:01> Psych: Appearance: well kempt <Nirali Burroughs MD - Last Filed: 02/24/24 00:01> Attitude: engaged <MD Trudy Piper Last Filed: 02/24/24 00:01> Activity/motor behavior: appropriate eye contact <Nirali Burroughs MD - Last Filed: 02/24/24 00:01> Insight: insight good <MD Trudy Piper Last Filed: 02/24/24 00:01> Judgement: judgment good <MD Trudy Piper Last Filed: 02/24/24 00:01> Skin: Common normals: no rashes or lesions noted <MD Trudy Piper Last Filed: 02/24/24 00:01> General skin exam: no rashes or lesions noted <MD Trudy Piper Last Filed: 02/24/24 00:01> Course Course ED Course: Increased suicidal ideation in the setting of increased stressors with upcoming move, graduation, relationship changes. Good compliance with medication and she is already plugged into counseling. At this time I am uncertain if she would benefit from hospitalization and would like input from our telehealth team. Await feedback. Basic labs to ensure there is no underlying medical etiology in the interim. Update 0 800, still awaiting dec assessment, will hand over care to incoming day shift partner. <Nirali Burroughs MD - Last Filed: 02/24/24 00:01> Vital Signs Vital signs: Initial Vital Signs Temperature 98.0 F 02/17/24 00:32 Temperature Source Temporal Artery Scan 02/17/24 00:32 Pulse Rate 93 02/17/24 00:32 Respiratory Rate 20 02/17/24 00:32 Blood Pressure 103/70 02/17/24 00:32 Blood Pressure Mean 81 02/17/24 00:32 Blood Pressure Position Sitting 02/17/24 00:32 Pulse Oximetry 99 02/17/24 00:32 Oxygen Delivery Method Room Air 02/17/24 00:32 Vital Signs Temperature 98.0 F 02/17/24 00:32 Pulse Rate 93 02/17/24 00:32 Respiratory Rate 20 02/17/24 00:32 Blood Pressure 103/70 02/17/24 00:32 Pulse Oximetry 99 02/17/24 00:32 Oxygen Delivery Method Room Air 02/17/24 00:32 Temperature 98.0 F 02/17/24 05:40 Pulse Rate 84 02/17/24 05:40 Respiratory Rate 20 02/17/24 05:40 Blood Pressure 118/74 02/17/24 05:40 Pulse Oximetry 99 02/17/24 05:40 Oxygen Delivery Method Room Air 02/17/24 05:40 <Nirali Burroughs MD - Last Filed: 02/24/24 00:01> Initial Vital Signs Temperature 98.0 F 02/17/24 00:32 Temperature Source Temporal Artery Scan 02/17/24 00:32 Pulse Rate 93 02/17/24 00:32 Respiratory Rate 20 02/17/24 00:32 Blood Pressure 103/70 02/17/24 00:32 Blood Pressure Mean 81 02/17/24 00:32 Blood Pressure Position Sitting 02/17/24 00:32 Pulse Oximetry 99 02/17/24 00:32 Oxygen Delivery Method Room Air 02/17/24 00:32 Vital Signs Temperature 98.0 F 02/17/24 00:32 Pulse Rate 93 02/17/24 00:32 Respiratory Rate 20 02/17/24 00:32 Blood Pressure 103/70 02/17/24 00:32 Pulse Oximetry 99 02/17/24 00:32 Oxygen Delivery Method Room Air 02/17/24 00:32 Temperature 98.0 F 02/17/24 05:40 Pulse Rate 84 02/17/24 05:40 Respiratory Rate 20 02/17/24 05:40 Blood Pressure 118/74 02/17/24 05:40 Pulse Oximetry 99 02/17/24 05:40 Oxygen Delivery Method Room Air 02/17/24 05:40 <Sabas Shaw MD - Last Filed: 02/17/24 08:56> MDM - Psych MDM Narrative Medical decision making narrative: Patient is a 24-year-old woman who comes in today for a safety concern. She had a deck assessment full evaluation and deck agrees that the patient can go home with an outpatient safety plan. Please refer to previous H and P by my colleague. <Sabas Shaw MD - Last Filed: 02/17/24 08:56> Differential Diagnosis Differential diagnosis: Likely suicidal ideation, bipolar disorder, depression and acute anxiety <Nirali Burroughs MD - Last Filed: 02/24/24 00:01> Medical Records Attestation: I reviewed the patient's medical records. <Nirali Burroughs MD - Last Filed: 02/24/24 00:01> Medical records narrative: Reviewed prior ED visits <Nirali Burroughs MD - Last Filed: 02/24/24 00:01> Lab Data Attestation: I reviewed the patient's lab results. <Nirali Burroughs MD - Last Filed: 02/24/24 00:01> Lab results narrative: All appropriate, as expected <Nirali Burroughs MD - Last Filed: 02/24/24 00:01> Labs: Lab Results 02/17/24 02/17/24 02/17/24 Range/Units 00:29 00:32 00:55 WBC (4.50-11.00) K/uL RBC (4.00-5.20) m/uL Hgb (12.0-16.0) gm/dL Hct (33.0-51.0) % MCV (80-100) fL MCH (26-34) pg MCHC (32-36) gm/dL RDW Coeff of Reynaldo (11.5-15.5) % Plt Count (140-440) K/uL Neut % (Auto) (42.0-72.0) % Lymph % (Auto) (20-44) % [place] % (Auto) (0.0-11.0) % Eos % (Auto) (0.0-7.0) % Baso % (Auto) (0.0-3.0) % Neut # (Auto) (1.7-7.0) K/uL Lymph # (Auto) (0.90-2.90) K/uL [place] # (Auto) (0.00-0.90) K/UL Eos # (Auto) (0.00-0.50) K/uL Baso # (Auto) (0.00-0.30) K/uL Abs Immat Gran (auto) (0.00-0.30) K/uL Imm/Tot Granulo (auto) % Sodium (135-149) mmol/L Potassium (3.6-5.1) mmol/L Chloride (96-114) mmol/L Carbon Dioxide (20-32) mmol/L Anion Gap (7-15) mEq/L BUN (5-24) mg/dL Creatinine (0.5-1.5) mg/dL Estimated Creat Clear Estimated GFR ml/min Glucose (60-115) mg/dL Calcium (8.4-10.6) mg/dL TSH (0.270-4.200) uIU/mL Urine Color Yellow (Yellow) Urine Appearance Clear (Clear) Urine pH 6.0 (5.0-8.5) Ur Specific [place] 1.020 (1.000-1.030) Urine Protein 2+ A (Negative) Urine Glucose (UA) Negative (Negative) Urine Ketones Trace A (Negative) Urine Blood 3+ A (Negative) Urine Nitrite Negative (Negative) Urine Bilirubin Negative (Negative) Urine Urobilinogen 0.2 (0.2-1.0) Ur Leukocyte Esterase Trace A (Negative) Urine RBC 5-10 A (0-2) Urine WBC 2-5 (0-5) Ur Squamous Epith Cells Few (None-Few) Urine Bacteria Few A (None) Urine HCG, Qual Negative (Negative) Salicylates (1.0-10) mg/dL Urine Opiates Screen Negative (Negative) Ur Oxycodone Screen Negative (Negative) Urine Methadone Screen Negative (Negative) Acetaminophen (10.0-30.0) ug/mL Ur Barbiturates Screen Negative (Negative) U Tricyclic Antidepress Negative (Negative) Ur Phencyclidine Scrn Negative (Negative) Ur Amphetamines Screen Negative (Negative) U Methamphetamines Scrn Negative (Negative) U Benzodiazepines Scrn Negative (Negative) Urine Cocaine Screen Negative (Negative) U Marijuana (THC) Screen Negative (Negative) Ur Drug Screen Comment See Note Ethyl Alcohol (0.01-0.03) % SARS-CoV-2 Ag (Rapid) Negative (Negative) 02/17/24 Range/Units 01:00 WBC 6.83 (4.50-11.00) K/uL RBC 4.05 (4.00-5.20) m/uL Hgb 11.7 L (12.0-16.0) gm/dL Hct 34.3 (33.0-51.0) % MCV 85 (80-100) fL MCH 29 (26-34) pg MCHC 34 (32-36) gm/dL RDW Coeff of Reynaldo 11.5 (11.5-15.5) % Plt Count 282 (140-440) K/uL Neut % (Auto) 49.1 (42.0-72.0) % Lymph % (Auto) 35.9 (20-44) % [place] % (Auto) 8.8 (0.0-11.0) % Eos % (Auto) 5.7 (0.0-7.0) % Baso % (Auto) 0.1 (0.0-3.0) % Neut # (Auto) 3.35 (1.7-7.0) K/uL Lymph # (Auto) 2.45 (0.90-2.90) K/uL [place] # (Auto) 0.60 (0.00-0.90) K/UL Eos # (Auto) 0.39 (0.00-0.50) K/uL Baso # (Auto) 0.01 (0.00-0.30) K/uL Abs Immat Gran (auto) 0.03 (0.00-0.30) K/uL Imm/Tot Granulo (auto) 0.4 % Sodium 140 (135-149) mmol/L Potassium 3.6 (3.6-5.1) mmol/L Chloride 110 (96-114) mmol/L Carbon Dioxide 23 (20-32) mmol/L Anion Gap 7 (7-15) mEq/L BUN 12 (5-24) mg/dL Creatinine 0.7 (0.5-1.5) mg/dL Estimated Creat Clear 103.81 Estimated GFR 125 ml/min Glucose 101 (60-115) mg/dL Calcium 8.9 (8.4-10.6) mg/dL TSH 2.420 (0.270-4.200) uIU/mL Urine Color (Yellow) Urine Appearance (Clear) Urine pH (5.0-8.5) Ur Specific [place] (1.000-1.030) Urine Protein (Negative) Urine Glucose (UA) (Negative) Urine Ketones (Negative) Urine Blood (Negative) Urine Nitrite (Negative) Urine Bilirubin (Negative) Urine Urobilinogen (0.2-1.0) Ur Leukocyte Esterase (Negative) Urine RBC (0-2) Urine WBC (0-5) Ur Squamous Epith Cells (None-Few) Urine Bacteria (None) Urine HCG, Qual (Negative) Salicylates < 1.0 L (1.0-10) mg/dL Urine Opiates Screen (Negative) Ur Oxycodone Screen (Negative) Urine Methadone Screen (Negative) Acetaminophen < 10.0 L (10.0-30.0) ug/mL Ur Barbiturates Screen (Negative) U Tricyclic Antidepress (Negative) Ur Phencyclidine Scrn (Negative) Ur Amphetamines Screen (Negative) U Methamphetamines Scrn (Negative) U Benzodiazepines Scrn (Negative) Urine Cocaine Screen (Negative) U Marijuana (THC) Screen (Negative) Ur Drug Screen Comment Ethyl Alcohol < 0.01 L (0.01-0.03) % SARS-CoV-2 Ag (Rapid) (Negative) <Nirali Burroughs MD - Last Filed: 02/24/24 00:01> Lab Results 02/17/24 02/17/24 02/17/24 Range/Units 00:29 00:32 00:55 WBC (4.50-11.00) K/uL RBC (4.00-5.20) m/uL Hgb (12.0-16.0) gm/dL Hct (33.0-51.0) % MCV (80-100) fL MCH (26-34) pg MCHC (32-36) gm/dL RDW Coeff of Reynaldo (11.5-15.5) % Plt Count (140-440) K/uL Neut % (Auto) (42.0-72.0) % Lymph % (Auto) (20-44) % [place] % (Auto) (0.0-11.0) % Eos % (Auto) (0.0-7.0) % Baso % (Auto) (0.0-3.0) % Neut # (Auto) (1.7-7.0) K/uL Lymph # (Auto) (0.90-2.90) K/uL [place] # (Auto) (0.00-0.90) K/UL Eos # (Auto) (0.00-0.50) K/uL Baso # (Auto) (0.00-0.30) K/uL Abs Immat Gran (auto) (0.00-0.30) K/uL Imm/Tot Granulo (auto) % Sodium (135-149) mmol/L Potassium (3.6-5.1) mmol/L Chloride (96-114) mmol/L Carbon Dioxide (20-32) mmol/L Anion Gap (7-15) mEq/L BUN (5-24) mg/dL Creatinine (0.5-1.5) mg/dL Estimated Creat Clear Estimated GFR ml/min Glucose (60-115) mg/dL Calcium (8.4-10.6) mg/dL TSH (0.270-4.200) uIU/mL Urine Color Yellow (Yellow) Urine Appearance Clear (Clear) Urine pH 6.0 (5.0-8.5) Ur Specific [place] 1.020 (1.000-1.030) Urine Protein 2+ A (Negative) Urine Glucose (UA) Negative (Negative) Urine Ketones Trace A (Negative) Urine Blood 3+ A (Negative) Urine Nitrite Negative (Negative) Urine Bilirubin Negative (Negative) Urine Urobilinogen 0.2 (0.2-1.0) Ur Leukocyte Esterase Trace A (Negative) Urine RBC 5-10 A (0-2) Urine WBC 2-5 (0-5) Ur Squamous Epith Cells Few (None-Few) Urine Bacteria Few A (None) Urine HCG, Qual Negative (Negative) Salicylates (1.0-10) mg/dL Urine Opiates Screen Negative (Negative) Ur Oxycodone Screen Negative (Negative) Urine Methadone Screen Negative (Negative) Acetaminophen (10.0-30.0) ug/mL Ur Barbiturates Screen Negative (Negative) U Tricyclic Antidepress Negative (Negative) Ur Phencyclidine Scrn Negative (Negative) Ur Amphetamines Screen Negative (Negative) U Methamphetamines Scrn Negative (Negative) U Benzodiazepines Scrn Negative (Negative) Urine Cocaine Screen Negative (Negative) U Marijuana (THC) Screen Negative (Negative) Ur Drug Screen Comment See Note Ethyl Alcohol (0.01-0.03) % SARS-CoV-2 Ag (Rapid) Negative (Negative) 02/17/24 Range/Units 01:00 WBC 6.83 (4.50-11.00) K/uL RBC 4.05 (4.00-5.20) m/uL Hgb 11.7 L (12.0-16.0) gm/dL Hct 34.3 (33.0-51.0) % MCV 85 (80-100) fL MCH 29 (26-34) pg MCHC 34 (32-36) gm/dL RDW Coeff of Reynaldo 11.5 (11.5-15.5) % Plt Count 282 (140-440) K/uL Neut % (Auto) 49.1 (42.0-72.0) % Lymph % (Auto) 35.9 (20-44) % [place] % (Auto) 8.8 (0.0-11.0) % Eos % (Auto) 5.7 (0.0-7.0) % Baso % (Auto) 0.1 (0.0-3.0) % Neut # (Auto) 3.35 (1.7-7.0) K/uL Lymph # (Auto) 2.45 (0.90-2.90) K/uL [place] # (Auto) 0.60 (0.00-0.90) K/UL Eos # (Auto) 0.39 (0.00-0.50) K/uL Baso # (Auto) 0.01 (0.00-0.30) K/uL Abs Immat Gran (auto) 0.03 (0.00-0.30) K/uL Imm/Tot Granulo (auto) 0.4 % Sodium 140 (135-149) mmol/L Potassium 3.6 (3.6-5.1) mmol/L Chloride 110 (96-114) mmol/L Carbon Dioxide 23 (20-32) mmol/L Anion Gap 7 (7-15) mEq/L BUN 12 (5-24) mg/dL Creatinine 0.7 (0.5-1.5) mg/dL Estimated Creat Clear 103.81 Estimated GFR 125 ml/min Glucose 101 (60-115) mg/dL Calcium 8.9 (8.4-10.6) mg/dL TSH 2.420 (0.270-4.200) uIU/mL Urine Color (Yellow) Urine Appearance (Clear) Urine pH (5.0-8.5) Ur Specific [place] (1.000-1.030) Urine Protein (Negative) Urine Glucose (UA) (Negative) Urine Ketones (Negative) Urine Blood (Negative) Urine Nitrite (Negative) Urine Bilirubin (Negative) Urine Urobilinogen (0.2-1.0) Ur Leukocyte Esterase (Negative) Urine RBC (0-2) Urine WBC (0-5) Ur Squamous Epith Cells (None-Few) Urine Bacteria (None) Urine HCG, Qual (Negative) Salicylates < 1.0 L (1.0-10) mg/dL Urine Opiates Screen (Negative) Ur Oxycodone Screen (Negative) Urine Methadone Screen (Negative) Acetaminophen < 10.0 L (10.0-30.0) ug/mL Ur Barbiturates Screen (Negative) U Tricyclic Antidepress (Negative) Ur Phencyclidine Scrn (Negative) Ur Amphetamines Screen (Negative) U Methamphetamines Scrn (Negative) U Benzodiazepines Scrn (Negative) Urine Cocaine Screen (Negative) U Marijuana (THC) Screen (Negative) Ur Drug Screen Comment Ethyl Alcohol < 0.01 L (0.01-0.03) % SARS-CoV-2 Ag (Rapid) (Negative) <Sabas Shaw MD - Last Filed: 02/17/24 08:56> Discharge Plan Discharge Clinical Impression: Suicidal ideation <Nirali Burroughs MD - Last Filed: 02/24/24 00:01> Patient Disposition: Home, Self-Care <Nirali Burroughs MD - Last Filed: 02/24/24 00:01> Condition: Stable <Nirali Burroughs MD - Last Filed: 02/24/24 00:01> Instructions: Anxiety (ED) <Nirali Burroughs MD - Last Filed: 02/24/24 00:01> Additional Instructions: Follow-up as discussed by mental health provider. <Nirali Burroughs MD - Last Filed: 02/24/24 00:01> Activity Level: No Restrictions <Nirali Burroughs MD - Last Filed: 02/24/24 00:01> No Restrictions <Sabas Shaw MD - Last Filed: 02/17/24 08:56> Discharge Diet: Regular <Nirali Burroughs MD - Last Filed: 02/24/24 00:01> Regular <Sabas Shaw MD - Last Filed: 02/17/24 08:56> Prescriptions: No Action dextroamphetamine-amphetamine 20 mg capsule,extended release 24hr 1 cap PO PRN epinephrine 0.3 mg/0.3 mL auto-injector 0.3 ml IM DIRECTED Patient Comments: PLEASE SEE ATTACHED FOR DETAILED DIRECTIONS lorazepam 0.5 mg tablet 0.5 mg PO DAILY PRN (Reason: panic attack) drospirenone-ethinyl estradiol 3-0.02 mg tablet 1 tab PO DAILY lurasidone 20 mg tablet 20 mg PO DAILY duloxetine 20 mg capsule,delayed release(DR/EC) 20 mg PO DAILY <Nirali Burroughs MD - Last Filed: 02/24/24 00:01> Follow Up/Referrals: Provider,Not a Local [Primary Care Provider] - <Nirali Burroughs MD - Last Filed: 02/24/24 00:01> Stand Alone Forms: MyHealth Info Instructions <Nirali Burroughs MD - Last Filed: 02/24/24 00:01>
[2024-02-17 01:18] LABS: Chloride* 110 mmol/L (96-114); Potassium* 3.6 mmol/L (3.6-5.1); Sodium* 140 mmol/L (135-149)
[2024-02-17 01:21] LABS: Anion Gap 7 mEq/L (7-15); Carbon Dioxide* 23 mmol/L (20-32); Creatinine* 0.7 mg/dL (0.5-1.5); Est. Creatinine Clearance* 103.81; Estimated Glomerular Filt Rate 125 ml/min
[2024-02-17 01:22] LABS: Blood Urea Nitrogen* 12 mg/dL (5-24); Calcium* 8.9 mg/dL (8.4-10.6); Glucose* 101 mg/dL (60-115)
[2024-02-17 01:25] LABS: Acetaminophen* < 10.0 ug/mL (10.0-30.0); Ethanol* < 0.01 % (0.01-0.03); Salicylate* < 1.0 mg/dL (1.0-10); Slide Review Reflex No
[2024-02-17 01:29] LABS: SARS Antigen* Negative (Negative)
[2024-02-17 02:30] VITALS: BP 115/78; PULSE 87; RESP 20; TEMP 36.7; O2SAT 99
[2024-02-17 05:40] VITALS: BP 118/74; PULSE 84; RESP 20; TEMP 36.7; O2SAT 99
== END 2024-02-17 09:14 | disposition home or self-care (01) ==
PROVIDERS: Emergency Provider Family Medicine
DX: R45.851 Suicidal ideations (principal)
CPT/HCPCS: 36415; 80048; 80143; 80179; 80306; 81001; 81025; 82077; 84443; 85025; 87086; 87186; 87426; 87635; 99283; 99284